=== PATIENT | female | born 1980 | race Caucasian/White ===

== ENCOUNTER 2019-01-16 15:39 | Observation (INO) ==
[2019-01-16] MEDS ORDERED: Ondansetron ODT 4 MG TAB.RAPDIS SL ONE (16:55)
--- NOTE | 2019-01-16 17:02 | Emergency Department Note ---
Disposition Clinical Impression: Appendicitis Qualifiers: Appendicitis type: acute appendicitis Acute appendicitis type: with localized peritonitis Appendicitis gangrene presence: unspecified whether gangrene present Appendicitis perforation presence: without perforation Appendicitis abscess presence: without abscess Qualified Code(s): K35.30 - Acute appendicitis with localized peritonitis, without perforation or gangrene Disposition: Admitted As Inpatient Condition: Fair General Adult HPI - General Chief complaint: ED Abdominal Pain Stated complaint: Nause/abd pain/No appetite Time Seen by Provider: 01/16/19 16:18 Source: patient Mode of arrival: private vehicle Limitations: no limitations Nursing Notes Reviewed: Yes Vital Signs Reviewed: Yes - History of Present Illness HPI Narrative: Patient is a 38-year-old female with a past medical history of anxiety, depression, possible thyroid problem who states that she has had generalized abdominal pain and nausea for the last 3 days. Patient has been eating and drinking less, states that she had a salad last night which caused a lot of abdominal pain. Patient was laying in bed today when her daughter decided that she needed to be seen in the ER. Patient is denying fevers or chills, headache, cough, runny nose, congestion, chest pain, shortness of breath, numbness, tingling, weakness. Patient states that she normally has problems with constipation, but she states that her bowels have been moving fairly regularly. Patient's last menstrual period was 01/04/19. Patient states that she took a home test because she was concerned she may be and states that it was negative. Pt also states that for the last two days she has not taken her lexapro or thyroid medication. Pain Scale: 5 - Related Data Home Medications Medication Instructions Recorded Confirmed Escitalopram [Lexapro] 10 mg PO DAILY 12/22/18 01/16/19 RX: hydrOXYzine HCl [Hydroxyzine 12.5 - 100 mg PO Q6HR PRN 12/22/18 01/16/19 HCl] Sucralfate [Carafate] 1 gm PO QIDAC 12/22/18 01/16/19 RX: Loratadine/Pseudophed (12 HR) 1 each PO BID PRN 01/16/19 01/16/19 [Claritin D (12HR)] Thyroid,Pork [Thyroid] 30 mg PO DAILY 01/16/19 01/16/19 Previous Rx's Medication Instructions Recorded RX: Vit/FA 1 each PO DAILY tablet 07/18/16 Lansoprazole [Prevacid] 30 mg PO DAILY #20 capsule. 09/29/18 Allergies Allergy/AdvReac Type Severity Reaction Status Date / Time latex Allergy Rash Verified 01/16/19 16:05 Penicillins Allergy Rash Verified 01/16/19 16:05 codeine AdvReac Mild Vomiting Verified 01/16/19 16:05 Constitutional: Denies: fever ENT ED: Denies: throat pain, congestion Cardiovascular: Denies: chest pain Respiratory: Denies: cough, dyspnea Gastrointestinal: Reports: abdominal pain, nausea. Denies: vomiting, diarrhea, constipation, hematochezia Genitourinary: Denies: urgency, dysuria Musculoskeletal: Denies: back pain, neck pain Neurological: Denies: headache, weakness, numbness, paresthesias Psychiatric: Reports: anxiety, depression Endocrine: Reports: fatigue. Denies: heat or cold intolerance Hematological/Lymphatic: Denies: easy bleeding, easy bruising Allergic/Immunologic: Denies: facial swelling, urticaria Past Medical History - Past Medical History Medical history: Reports: other Surgical history: Reports: other Psychiatric history: Reports: anxiety, panic disorder LINEMAN A CLASS history: Reports: no LINEMAN A CLASS history - Social History Smoking Status: Never smoker Smokeless Tobacco Status: No Alcohol use: Reports: rarely Drug use: Reports: none Physical Exam General: A&O x 3. No acute distress. Well developed, well nourished. Head: atraumatic, normocephalic. ENT: No conjunctival injection, no scleral icterus. PERRLA. EOMI. Oropharynx non- erythematous. mucous membranes dry. Neuro: No focal deficits, no speech deficit, no facial droop, mentating well. BUE/BLE Str 5/5. Pulm: Lungs CTAB A/P. No wheezes, rales, ronchi. Cardio: RRR no m/r/g. Chest not tender to palpation. Abd: Soft, non-distended. Normoactive bowel sounds in all four quadrants. Diffusely tender to palpation in all quadrants. No guarding. Non rigid. Extremities: Radial pulses 2+ ana. No LE edema. No cyanosis, clubbing. Skin: warm, dry, intact. No rashes. Psych: Appropriate mood and affect. Answers questions appropriately. Cooperative with exam. - General Limitations: no limitations General appearance: alert, in no apparent distress Course Course Narrative: Concern for appendicitis, gastritis, , pancreatitis. Will obtain CBC, BMP, lipase, UA, Urine , Ct Abd/Pelvis if U preg is negative. - Reevaluation(s) Reevaluation #1: CT Abd was concerning for appendicitis with inflammatory changes at base of appendix and periappendiceal inflammatory changes. Spoke with Dr. Drummond who agreed to evaluate the patient at bedside. Ordered antibiotics, made her NPO, and informed the patient of the plan. She then expressed that this was making her anxious, attempting reassurance and then ordered ativan, 1 mg IV. Time: 19:13 Vital Signs Temperature 97.8 F 01/16/19 16:02 Pulse Rate 106 01/16/19 16:02 Respiratory Rate 14 01/16/19 16:02 Blood Pressure 113/79 01/16/19 16:02 O2 Sat by Pulse Oximetry 98 01/16/19 16:02 Temperature 97.8 F 01/16/19 16:02 Pulse Rate 101 01/16/19 21:08 Respiratory Rate 16 01/16/19 21:08 Blood Pressure 106/74 01/16/19 21:08 O2 Sat by Pulse Oximetry 100 01/16/19 21:08 Oxygen Delivery Oxygen Delivery Room Air Medical Decision Making - MDM Narrative Medical decision making narrative: Pts CT was concerning for appendicitis. Dr. Drummond, surgeon paper cone machine operator, was consulted on the case and he evaluated the patient at bedside. Pt was started on cefoxitin, made NPO, and given ativan for anxiety. Dr Drummond decided to take patient to the OR and she was kept in the ED until being taken to the OR. Pt remained stable while in the department. Pt was given anti-emetics with only modest relief. Pt was given an opportunity to ask questions and all of her concerns were addressed. Pt verbalized understanding and agreement with the plan. - Medical Records Medical records reviewed: Yes I reviewed the patient's medical records. - Lab Data Lab results reviewed: Yes I reviewed the patient's lab results. Result diagrams: 01/16/19 16:32 01/16/19 16:32 Lab Results 01/16/19 01/16/19 01/16/19 Range/Units 16:32 16:32 18:34 WBC 5.6 (4.3-11.1) K/mcL RBC 4.74 (3.82-4.97) M/mcL Hgb 13.2 (11.5-15.4) g/dL Hct 41.6 (35.3-44.9) % MCV 87.8 (83.0-100.0) fL MCH 27.8 L (28.0-33.3) pg MCHC 31.7 (31.6-35.5) g/dL RDW 13.9 (11.5-14.5) % Plt Count 207 (140-400) K/mcL MPV 10.8 (9.4-12.4) fL Immature Gran % 0.4 (0-4) % Seg Neutrophils % 74.5 % Lymphocytes % 13.8 % Monocytes % 8.7 % Eosinophils % 2.1 % Basophils % 0.5 % Neutrophils # 4.2 (1.6-8.9) K/mcL Lymphocytes # 0.8 (0.6-4.6) K/mcL Monocytes # 0.5 (0.0-1.3) K/mcL Eosinophils # 0.1 (0.0-0.6) K/mcL Basophils # 0.0 (0.0-0.2) K/mcL Sodium 135 L (136-145) mEq/L Potassium 3.9 (3.5-5.1) mEq/L Chloride 106 (98-107) mEq/L Carbon Dioxide 22 L (23-29) mEq/L BUN 11 (6-20) mg/dL Creatinine 0.47 L (0.60-1.20) mg/dL Est GFR ( Amer) > 60 (> 60) Est GFR (Non-Af Amer) > 60 (> 60) BUN/Creatinine Ratio 23 (6-26) Glucose 96 (70-105) mg/dL Calculated Osmolality 279 L (280-300) Calcium 8.0 L (8.6-10.3) mg/dL Total Bilirubin 0.4 (0.3-1.0) mg/dL Direct Bilirubin 0.1 (0.0-0.2) mg/dL Indirect Bilirubin 0.3 (0.0-1.2) mg/dL AST 21 (13-39) Units/L ALT 13 (7-52) Units/L Alkaline Phosphatase 72 (34-104) Units/L Serum Total Protein 6.7 (6.4-8.9) g/dL Albumin 4.2 (3.5-5.7) g/dL Globulin 2.5 (2.4-3.5) g/dL Albumin/Globulin Ratio 1.7 (1.1-2.2) Lipase 14 (11-82) Units/L TSH 1.145 (0.340-5.600) mcIU/mL Urine Color Yellow (Yellow) Urine Clarity Clear (Clear) Urine pH 6.0 (5.0-8.0) pH Units Ur Specific [place] 1.017 (1.010-1.025) Urine Protein Trace (Neg-Trace) mg/dL Urine Glucose (UA) Normal (Normal) mg/dL Urine Ketones 80 H (Negative) mg/dL Urine Blood Negative (Negative) Urine Nitrite Negative (Negative) Urine Bilirubin Negative (Negative) Urine Urobilinogen Normal (Normal) mg/dL Ur Leukocyte Esterase Small H (Negative) Urine Microscopic RBC 5-15 H (0-3) per hpf Urine Microscopic WBC 5-15 H (0-3) per hpf Ur Squamous Epith Cells Many H (None-Few) per lpf Urine Bacteria Few (None-Few) per hpf Hyaline Casts None Seen (None-Few) per lpf Ur Culture Indicated? NO. A (NO) Urine Test (Negative) 01/16/19 Range/Units 18:34 WBC (4.3-11.1) K/mcL RBC (3.82-4.97) M/mcL Hgb (11.5-15.4) g/dL Hct (35.3-44.9) % MCV (83.0-100.0) fL MCH (28.0-33.3) pg MCHC (31.6-35.5) g/dL RDW (11.5-14.5) % Plt Count (140-400) K/mcL MPV (9.4-12.4) fL Immature Gran % (0-4) % Seg Neutrophils % % Lymphocytes % % Monocytes % % Eosinophils % % Basophils % % Neutrophils # (1.6-8.9) K/mcL Lymphocytes # (0.6-4.6) K/mcL Monocytes # (0.0-1.3) K/mcL Eosinophils # (0.0-0.6) K/mcL Basophils # (0.0-0.2) K/mcL Sodium (136-145) mEq/L Potassium (3.5-5.1) mEq/L Chloride (98-107) mEq/L Carbon Dioxide (23-29) mEq/L BUN (6-20) mg/dL Creatinine (0.60-1.20) mg/dL Est GFR ( Amer) (> 60) Est GFR (Non-Af Amer) (> 60) BUN/Creatinine Ratio (6-26) Glucose (70-105) mg/dL Calculated Osmolality (280-300) Calcium (8.6-10.3) mg/dL Total Bilirubin (0.3-1.0) mg/dL Direct Bilirubin (0.0-0.2) mg/dL Indirect Bilirubin (0.0-1.2) mg/dL AST (13-39) Units/L ALT (7-52) Units/L Alkaline Phosphatase (34-104) Units/L Serum Total Protein (6.4-8.9) g/dL Albumin (3.5-5.7) g/dL Globulin (2.4-3.5) g/dL Albumin/Globulin Ratio (1.1-2.2) Lipase (11-82) Units/L TSH (0.340-5.600) mcIU/mL Urine Color (Yellow) Urine Clarity (Clear) Urine pH (5.0-8.0) pH Units Ur Specific [place] (1.010-1.025) Urine Protein (Neg-Trace) mg/dL Urine Glucose (UA) (Normal) mg/dL Urine Ketones (Negative) mg/dL Urine Blood (Negative) Urine Nitrite (Negative) Urine Bilirubin (Negative) Urine Urobilinogen (Normal) mg/dL Ur Leukocyte Esterase (Negative) Urine Microscopic RBC (0-3) per hpf Urine Microscopic WBC (0-3) per hpf Ur Squamous Epith Cells (None-Few) per lpf Urine Bacteria (None-Few) per hpf Hyaline Casts (None-Few) per lpf Ur Culture Indicated? (NO) Urine Test Negative (Negative) - Radiology Data Radiology results reviewed: Yes I reviewed the patient's radiology results. Abdomen/Pelvis CT 01/16/19 17:03 IMPRESSION: 1. A large portion the appendix appears normal, however there is a portion of the appendix either at the base or tip which appears inflammatory with periappendiceal fluid suspicious for focal acute appendicitis. No perforation is evident. 2. Mild intra and extrahepatic bile duct dilatation status post cholecystectomy typical of reservoir effect. D/ / Hernán Lynen / Hernán Lynne Interpreting Provider: Hernán Lynne Attestation Statement - Attestation Attestation: Resident Attestation: I examined this patient and my medical decision making was reviewed with the Resident Physician. I agree with the documented findings, disposition and treatment plan as described except to the extent set forth below. We independently had [id number] contact with the patient. Patient presenting to the emergency department for evaluation of abdominal pain. Patient abdominal pain does appear to be epigastric and left-sided in nature. Patient does have significant tenderness palpation with associated guarding. Patient will undergo further evaluation with blood work and CT scan. CT scan concerning for appendicitis. Call was placed to surgery. Patient will be taken for surgery and admitted to the surgical service.
[2019-01-16] MEDS ORDERED: Famotidine 20 MG/2 ML VIAL IVP STA (17:03)
[2019-01-16] MEDS ORDERED: Isovue-370 500 ML BOTTLE IVP ONE (17:03)
[2019-01-16] MEDS ORDERED: 0.9 % Sodium Chloride 1,000 ML IVC ONE (17:03)
[2019-01-16 17:17] LABS: Basophils % 0.5 %; Eosinophils # 0.1 K/mcL (0.0-0.6); Eosinophils % 2.1 %; Hematocrit 41.6 % (35.3-44.9); Hemoglobin 13.2 g/dL (11.5-15.4); Immature Granulocytes % 0.4 % (0-4); Lymphocytes # 0.8 K/mcL (0.6-4.6); Lymphocytes % 13.8 %; Mean Corpuscular HGB Conc 31.7 g/dL (31.6-35.5); Mean Corpuscular Hemoglobin 27.8 pg (28.0-33.3); Mean Corpuscular Volume 87.8 fL (83.0-100.0); Mean Platelet Volume 10.8 fL (9.4-12.4); Monocytes # 0.5 K/mcL (0.0-1.3); Monocytes % 8.7 %; Neutrophils # 4.2 K/mcL (1.6-8.9); Platelet Count 207 K/mcL (140-400); Red Blood Count 4.74 M/mcL (3.82-4.97); Red Cell Distribution Width 13.9 % (11.5-14.5); Segmented Neutrophils % 74.5 %
[2019-01-16 17:40] LABS: Alanine Aminotransferase 13 Units/L (7-52); Albumin 4.2 g/dL (3.5-5.7); Albumin/Globulin Ratio 1.7 (1.1-2.2); Alkaline Phosphatase 72 Units/L (34-104); Aspartate Amino Transferase 21 Units/L (13-39); BUN/Creatinine Ratio 23 (6-26); Bilirubin,Direct 0.1 mg/dL (0.0-0.2); Bilirubin,Indirect 0.3 mg/dL (0.0-1.2); Bilirubin,Total 0.4 mg/dL (0.3-1.0); Blood Urea Nitrogen 11 mg/dL (6-20); Carbon Dioxide 22 mEq/L (23-29); Chloride 106 mEq/L (98-107); Globulin 2.5 g/dL (2.4-3.5); Glucose 96 mg/dL (70-105); Lipase 14 Units/L (11-82); Osmolality,Calculated 279 (280-300); Potassium 3.9 mEq/L (3.5-5.1); Sodium 135 mEq/L (136-145); Total Protein 6.7 g/dL (6.4-8.9); eGFR For Non-African Americans > 60 (> 60)
[2019-01-16 17:51] LABS: Thyroid Stimulating Hormone 1.145 mcIU/mL (0.340-5.600)
[2019-01-16] MEDS ORDERED: cefOXitin 2,000 MG in 0.9 % Sodium Chloride Mini Bag 100 ML IVPB ONE (19:06)
[2019-01-16] MEDS ORDERED: *HR* LORazepam 2 MG/ML VIAL IVP ONE (19:12)
[2019-01-16 19:22] LABS: Bilirubin,Urine Negative (Negative); Blood,Urine Negative (Negative); Clarity,Urine Clear (Clear); Color,Urine Yellow (Yellow); Glucose,Urine (UA) Normal (Normal); Ketones,Urine 80 mg/dL (Negative); Leukocyte Esterase,Urine Small (Negative); Nitrite,Urine Negative (Negative); Protein,Urine Trace mg/dL (Neg-Trace); Specific Gravity,Urine 1.017 (1.010-1.025); Urobilinogen,Urine Normal (Normal)
[2019-01-16 19:25] LABS: Bacteria,Urine Few per hpf (None-Few); Hyaline Casts,Urine None Seen per lpf (None-Few); Squamous Epithelial Cell,Urine Many per lpf (None-Few)
--- NOTE | 2019-01-16 20:02 | General Surg History&Physical ---
Date of Encounter: 01/16/19 Time of Encounter: 19:45 Assessment and Plan (1) Appendicitis Current Visit: Yes Status: Acute The assessment and plan as outlined above was discussed with the patient and/or family members who expressed understanding and agreement. All questions were answered. Acute retrocecal appendicitis associated with nonspecific abdominal symptoms. abnormal CAT scan findings. No evidence of leukocytosis. I discussed the risks and benefits of surgery with the patient and she wishes to proceed. Qualifiers: Appendicitis type: acute appendicitis Acute appendicitis type: with l ocalized peritonitis Appendicitis gangrene presence: unspecified whether gangrene present Appendicitis perforation presence: without perforation Appendicitis abscess presence: without abscess Qualified Code(s): K35.30 - Acute appendicitis with localized peritonitis, without perforation or gangrene History of Present Illness Chief complaint: Abdominal pain and nausea HPI: Ms. Beckford is a 38 year old female Who is had 3 day history of generalized malaise and central abdominal pain associated with nausea and vomiting. She is felt very poorly over the last 3 days just prior to examination she had a single episode of diarrhea. She has pain in the central portion the abdomen radiating to both lower quadrants. She has prominent anorexia I personally reviewed the CAT scan of the abdomen. Radiology is diagnosed acute appendicitis and I agree with the findings. She appears to have periappendiceal inflammation in this appears to be retrocecal in orientation. I have recommended laparoscopic appendectomy. She understands this and wishes to proceed. Past Med Surg Social Fam HX - Past Medical History Medical history: other Additional medical history: stomach ulcers Psychiatric history: anxiety, panic disorder - Past Surgical History Surgical History: cholecystectomy, other Additional surgical history: ovarian cyst sx - Social History Smoking Status: Never smoker Smokeless Tobacco Status: No Alcohol use: rarely Drug use: none - Family History Father Hx Family Cardiac Disorders: Yes (HTN) Medications and Allergies Vit/FA 1 each PO DAILY tablet 07/18/16 [Rx] Lansoprazole [Prevacid] 30 mg PO DAILY #20 capsule. 09/29/18 [Rx] Escitalopram [Lexapro] 10 mg PO DAILY 12/22/18 [History] Sucralfate [Carafate] 1 gm PO QIDAC 12/22/18 [History] hydrOXYzine HCl [Hydroxyzine HCl] 12.5 - 100 mg PO Q6HR PRN 12/22/18 [History] Loratadine/Pseudophed (12 HR) [Claritin D (12HR)] 1 each PO BID PRN 01/16/19 [History] Thyroid,Pork [Thyroid] 30 mg PO DAILY 01/16/19 [History] Allergy/AdvReac Type Severity Reaction Status Date / Time latex Allergy Rash Verified 01/16/19 16:05 Penicillins Allergy Rash Verified 01/16/19 16:05 codeine AdvReac Mild Vomiting Verified 01/16/19 16:05 Review of Systems All systems PM: reviewed and no additional remarkable complaints except as stated All systems PM: The remainder of the systems were reviewed and are negative - Gastrointestinal diarrhea, nausea, vomiting General Surgery Exam Initial Vital Signs Temp Pulse Resp BP Pulse Ox 97.8 F 106 14 113/79 98 01/16/19 16:02 01/16/19 16:02 01/16/19 16:02 01/16/19 16:02 01/16/19 16:02 - General physical appearance well developed, well nourished, moderate distress, moderate pain - Neck no masses, no bruits, trachea midline, no lymphadectomy, no venous distension - Respiratory normal expansion, normal respiratory effort, clear to percussion, clear to auscultation - Cardiovascular Cardiovascular exam: Present: RRR, no murmurs/rubs/gallops - Abdomen Abdomen general surgery: Present: tender (No guarding or rebound on the abdominal examination) Abdominal Tenderness: Present: RLQ, LLQ - Integumentary Integumentary general surgery: Present: warm and dry, no abnormal pigmentation - Neurologic Present: CN 2-12 grossly intact, normal coordination, normal sensation - Psychiatric Psychiatric general surgery: Present: appropriate, oriented to person, oriented to place, oriented to time, speech is normal, memory intact Results - Labs 01/16/19 16:32 01/16/19 16:32 Abnormal lab results MCH 27.8 pg (28.0-33.3) L 01/16/19 16:32 Sodium 135 mEq/L (136-145) L 01/16/19 16:32 Carbon Dioxide 22 mEq/L (23-29) L 01/16/19 16:32 Creatinine 0.47 mg/dL (0.60-1.20) L 01/16/19 16:32 Calculated Osmolality 279 (280-300) L 01/16/19 16:32 Calcium 8.0 mg/dL (8.6-10.3) L 01/16/19 16:32 Urine Ketones 80 mg/dL (Negative) H 01/16/19 18:34 Ur Leukocyte Esterase Small (Negative) H 01/16/19 18:34 Urine Microscopic RBC 5-15 per hpf (0-3) H 01/16/19 18:34 Urine Microscopic WBC 5-15 per hpf (0-3) H 01/16/19 18:34 Ur Squamous Epith Cells Many per lpf (None-Few) H 01/16/19 18:34 Ur Culture Indicated? NO. (NO) A 01/16/19 18:34 Diabetes panel 01/16/19 Range/Units 16:32 Sodium 135 L (136-145) mEq/L Potassium 3.9 (3.5-5.1) mEq/L Chloride 106 (98-107) mEq/L Carbon Dioxide 22 L (23-29) mEq/L BUN 11 (6-20) mg/dL Creatinine 0.47 L (0.60-1.20) mg/dL Glucose 96 (70-105) mg/dL Calcium 8.0 L (8.6-10.3) mg/dL AST 21 (13-39) Units/L ALT 13 (7-52) Units/L Alkaline Phosphatase 72 (34-104) Units/L Albumin 4.2 (3.5-5.7) g/dL Thyroid panel 01/16/19 Range/Units 16:32 TSH 1.145 (0.340-5.600) mcIU/mL Calcium panel 01/16/19 Range/Units 16:32 Calcium 8.0 L (8.6-10.3) mg/dL Albumin 4.2 (3.5-5.7) g/dL Pituitary panel 01/16/19 Range/Units 16:32 Sodium 135 L (136-145) mEq/L Potassium 3.9 (3.5-5.1) mEq/L Chloride 106 (98-107) mEq/L Carbon Dioxide 22 L (23-29) mEq/L BUN 11 (6-20) mg/dL Creatinine 0.47 L (0.60-1.20) mg/dL Glucose 96 (70-105) mg/dL Calcium 8.0 L (8.6-10.3) mg/dL TSH 1.145 (0.340-5.600) mcIU/mL Adrenal panel 01/16/19 Range/Units 16:32 Sodium 135 L (136-145) mEq/L Potassium 3.9 (3.5-5.1) mEq/L Chloride 106 (98-107) mEq/L Carbon Dioxide 22 L (23-29) mEq/L BUN 11 (6-20) mg/dL Creatinine 0.47 L (0.60-1.20) mg/dL Glucose 96 (70-105) mg/dL Calcium 8.0 L (8.6-10.3) mg/dL Total Bilirubin 0.4 (0.3-1.0) mg/dL AST 21 (13-39) Units/L ALT 13 (7-52) Units/L Alkaline Phosphatase 72 (34-104) Units/L Albumin 4.2 (3.5-5.7) g/dL All other labs normal. - Imaging CT scan - abdomen: image reviewed (I personally reviewed the CAT scan of the abdomen. Findings are consistent with retrocecal appendicitis)
[2019-01-16] MEDS ORDERED: *HR* OxyCODONE Immed Rel 5 MG TABLET PO PRN (21:18)
[2019-01-16] MEDS ORDERED: *HR* HYDROmorphone (PF) 1 MG/ML SYRINGE IVP PRN (21:18)
[2019-01-16] MEDS ORDERED: Ondansetron 4 MG/2 ML VIAL IVP ONE (21:18)
--- NOTE | 2019-01-16 21:18 | Anesthesia Evaluation PreOp ---
Date of Encounter: 01/16/19 Time of Encounter: 21:57 - Past History Planned Operation: Laparoscopic Appendectomy Cardiac History: Denies any Significant Hx Pulmonary History: Former smoker (quit 7 years ago, smoked for 15 years) BANQUET DIRECTOR History: Denies Any Significant HX Other Medical History: Thyroid, GERD, Other (panic/anxiety) Anesthesia History: No Prior Anesthetic Complications, Past Anesthesia Test: Negative (01/16/2019) Alcohol Use: rarely Drug use: none Medications and Allergies Vit/FA 1 each PO DAILY tablet 07/18/16 [Rx] Lansoprazole [Prevacid] 30 mg PO DAILY #20 capsule. 09/29/18 [Rx] Escitalopram [Lexapro] 10 mg PO DAILY 12/22/18 [History] Sucralfate [Carafate] 1 gm PO QIDAC 12/22/18 [History] hydrOXYzine HCl [Hydroxyzine HCl] 12.5 - 100 mg PO Q6HR PRN 12/22/18 [History] Loratadine/Pseudophed (12 HR) [Claritin D (12HR)] 1 each PO BID PRN 01/16/19 [History] Thyroid,Pork [Thyroid] 30 mg PO DAILY 01/16/19 [History] Allergy/AdvReac Type Severity Reaction Status Date / Time latex Allergy Rash Verified 01/16/19 16:05 Penicillins Allergy Rash Verified 01/16/19 16:05 codeine AdvReac Mild Vomiting Verified 01/16/19 16:05 - Meds/Allergy Pre-op Review Medications Reviewed: Yes Allergies Reviewed: Yes Beta Blockers on Current Med List: No Anesthesia Results - Labs 01/16/19 16:32 01/16/19 16:32 Anesthesia Exam Vital Signs/O2 Sat, Most Current Temp Pulse Resp BP Pulse Ox 97.8 F 101 16 106/74 100 01/16/19 16:02 01/16/19 21:08 01/16/19 21:08 01/16/19 21:08 01/16/19 21:08 Height: 5'2''/1.57m Weight: 121 lbs/55 kg NPO (# of Hours): 8 Pain Scale: 3 (abdomen) Pain Scale Used: Numeric (1 - 10) - HEENT Pupil (Motor): EOMI Mallampati: II Teeth: Normal Oral Opening: Greater than 3 - BANQUET DIRECTOR LOC: Oriented BANQUET DIRECTOR Motor: Normal RUE, Normal LUE, Normal RLE, Normal LLE, Normal Face BANQUET DIRECTOR Sensory: Normal: RUE, LUE, RLE, LLE, Face - Cardiac Rhythm: Regular Murmur: None - Pulmonary Breath Sounds: bilateral Clear Respiratory Effort: Symmetrical Anesthesia Assess/Plan ASA Score: 2 Level of consciousness: Cooperative, Oriented, Tranquil Anesthetic Plan: General Monitoring Plan: Standard Monitors Recovery Plan: PACU
[2019-01-16] MEDS ORDERED: Acetaminophen IV 1,000 MG/100 ML INFUS..BTL ONE (21:44)
[2019-01-16] MEDS ORDERED: *HR* Cisatracurium 10 MG/5 ML VIAL IV ONE (21:45)
[2019-01-16] MEDS ORDERED: *HR* Midazolam HCl 2 MG/2 ML VIAL ONE (21:46)
[2019-01-16] MEDS ORDERED: *HR* Propofol 200 MG/20 ML VIAL IVP ONE (21:46)
[2019-01-16] MEDS ORDERED: Ondansetron 4 MG/2 ML VIAL ONE (21:46)
[2019-01-16] MEDS ORDERED: Lidocaine -MPF 2% 2 ML VIAL ONE ×2 (21:46→22:53)
[2019-01-16] MEDS ORDERED: *HR* FentaNYL (PF) 100 MCG/2 ML VIAL ONE (21:46)
[2019-01-16] MEDS ORDERED: Dexamethasone 4 MG/ML VIAL ONE (21:46)
[2019-01-16] MEDS ORDERED: *HR* Succinylcholine 200 MG/10 ML VIAL IVP ONE (21:46)
[2019-01-16] MEDS ORDERED: CefOXitin 2,000 MG VIAL ONE (21:48)
[2019-01-16] MEDS ORDERED: CefOXitin 1,000 MG VIAL ONE (21:50)
[2019-01-16] MEDS ORDERED: EPHEDrine 50 MG/ML VIAL ONE (22:31)
--- NOTE | 2019-01-16 23:11 | Operative Note ---
Date of procedure: 01/16/19 Pre-op diagnosis: Acute appendicitis Post-op diagnosis: other (Ruptured right hemorrhagic ovarian cyst) Procedure: #1 laparoscopic appendectomy #2 diagnostic pelvic laparoscopy Anesthesia: VERONICA Surgeon: Petar Drummond Was there an cement tester assistant present: No Estimated blood loss (cc): 25 Specimen: Appendix Condition: stable Disposition: PACU Procedure in Detail: After informed consent the patients taking major operative suite placed in supine position given adequate general endotracheal anesthesia. The abdomen was prepped and draped in sterile fashion utilizing ChloraPrep standard draping techniques. Timeout was taken and the patient was identified. Made a vertical midline incision below the umbilicus and dissected down to level of fascia. 2 traction stitches were placed. A Bey trocar was placed in the abdomen and the abdomen was insufflated to 15 mmHg pressure CO2. The patient developed some bradycardia and hypotension. The gas pressure was immediately dropped and the abdomen and the patient quickly recovered. We re-insufflated to 10 mmHg pressure no further drops were noted. I placed a 5 mm trocar in the suprapubic area and a 12 trocar in the right upper quadrant. The appendix was identified. This was retrocecal. It was completely normal and noninflamed. I divided the appendix off the base the cecum with a gastrointestinal load and I divided the mesial appendix with a vascular load on the laparoscopic stapler. The appendix was removed. When I initially placed the laparoscope in the abdomen was noted that there was some brownish red fluid in the pelvis. Since the appendix was normal and then turned my attention to the ovaries. I examined the right ovary and found to cysts on the right ovary one of which looked as though it had recently ruptured. I examined the left ovary and found no evidence of cysts. I will I was elevating the left ovary I damaged the posterior aspect of the left broad ligament. There was some mild bleeding from this area. I controlled the bleeding with 10 mm surgical clips and 2 mL of charlie I made a careful observation of the left broad ligament. There was no damage to the left tube or ovary. There is no further bleeding from the peritoneal surface of the left broad ligament. No ovarian cyst or abnormality was noted on the left ovary. I irrigated the pelvis and the operative field with copious amounts of antibiotic containing solution. All staple lines were intact. There was no further bleeding. Total blood loss was about 25 mL. All trochars were removed. Fascia was closed with 0 Vicryl. The skin was reapproximated with 2-0 Vicryl and 4-0 Vicryl. She tolerated the procedure well.
--- NOTE | 2019-01-16 23:35 | Anesthesia Evaluation Post Op ---
Date of Encounter: 01/16/19 Time of Encounter: 23:34 - Vital Signs Vital Signs: Vital Signs/O2 Sat, Most Current Temp Pulse Resp BP Pulse Ox 98.1 F 85 14 101/65 100 01/16/19 23:10 01/16/19 23:30 01/16/19 23:30 01/16/19 23:30 01/16/19 23:30 - Lungs Lungs: Clear Ascult./Percussion - Airway Airway: Non-obstructed - Cardiovascular Regular Rate - Mental Status Mental Status: Asleep with brisk response to light stimulation - Pain Pain Scale: 6 Pain Scale used: Numeric (1 - 10) - Nausea Vomiting Nausea Vomiting: Not Present - Hydration Hydration: Ice chips, Has not voided - Discharge PostOp Status: Transfer Patient to floor
[2019-01-16] MEDS ORDERED: *HR* OxyCODONE/APAP 5/325 TABLET PO PRN (23:54)
[2019-01-16] MEDS ORDERED: Ondansetron 4 MG/2 ML VIAL IVP PRN (23:54)
[2019-01-16] MEDS ORDERED: 0.9 % Sodium Chloride 1,000 ML IVC SCH (23:54)
[2019-01-17] MEDS: OXYCODONE Oral CONC 10 MG/0.5 ML ORAL.SYG SL PRN ×2 (00:06→04:02)
[2019-01-17 04:40] LABS: Basophils % 0.3 %; Hematocrit 36.2 % (35.3-44.9); Hemoglobin 11.3 g/dL (11.5-15.4); Immature Granulocytes % 0.3 % (0-4); Lymphocytes # 0.3 K/mcL (0.6-4.6); Lymphocytes % 4.2 %; Mean Corpuscular HGB Conc 31.2 g/dL (31.6-35.5); Mean Corpuscular Hemoglobin 27.6 pg (28.0-33.3); Mean Corpuscular Volume 88.3 fL (83.0-100.0); Mean Platelet Volume 10.8 fL (9.4-12.4); Monocytes # 0.2 K/mcL (0.0-1.3); Neutrophils # 5.9 K/mcL (1.6-8.9); Platelet Count 164 K/mcL (140-400); Red Cell Distribution Width 13.9 % (11.5-14.5); Segmented Neutrophils % 92.2 %
[2019-01-17 04:59] LABS: BUN/Creatinine Ratio 24 (6-26); Blood Urea Nitrogen 11 mg/dL (6-20); Calcium 7.3 mg/dL (8.6-10.3); Carbon Dioxide 19 mEq/L (23-29); Chloride 108 mEq/L (98-107); Glucose 104 mg/dL (70-105); Osmolality,Calculated 280 (280-300); Sodium 135 mEq/L (136-145); eGFR For Non-African Americans > 60 (> 60)
--- NOTE | 2019-01-17 08:30 | Discharge Summary ---
<Denise Duron L - Last Filed: 01/17/19 10:30> Orders not resulted at time of discharge: Pending orders 01/16/19 22:55 Surgical Pathology [PTH] Routine Date of Encounter: 01/17/19 Time of Encounter: 07:45 - Discharge Diagnosis (1) Ruptured cyst of ovary Priority: Secondary Status: Acute (2) Appendicitis Priority: Primary Status: Resolved Qualifiers: Appendicitis type: acute appendicitis Acute appendicitis type: with localized peritonitis Appendicitis gangrene presence: unspecified whether gangrene present Appendicitis perforation presence: without perforation Appendicitis abscess presence: without abscess Qualified Code(s): K35.30 - Acute appendicitis with localized peritonitis, without perforation or gangrene General Surgery Exam Initial Vital Signs Temp Pulse Resp BP Pulse Ox 97.8 F 106 14 113/79 98 01/16/19 16:02 01/16/19 16:02 01/16/19 16:02 01/16/19 16:02 01/16/19 16:02 Vital Signs Temp Pulse Resp BP Pulse Ox 01/17/19 07:52 98.1 F 95 15 101/65 98 01/17/19 04:28 97.7 F 82 19 121/82 100 01/17/19 00:35 97.9 F 82 16 107/72 99 01/17/19 00:07 97.5 F L 86 16 107/68 99 01/16/19 23:37 98.1 F 79 16 107/71 100 01/16/19 23:30 85 14 101/65 100 01/16/19 23:20 88 14 113/67 100 01/16/19 23:10 98.1 F 104 12 111/60 100 01/16/19 21:08 101 16 106/74 100 01/16/19 20:03 85 16 117/79 100 01/16/19 18:46 84 16 103/72 100 01/16/19 16:02 97.8 F 106 14 113/79 98 Intake and Output 01/16/19 01/17/19 01/17/19 23:59 07:59 15:59 Intake Total 200 / 200 1340 / 1340 Output Total 20 / 20 200 / 200 Balance -20 / -20 0 / 0 1340 / 1340 Intake: IV Fluids 100 / 100 1100 / 1100 Ancef 2,000 MG In 0.9 % Sodium 100 / 100 Chloride 100 ML @ 200 mls/hr IVPB Q8HR [facility] Rx#:[id number] Oral 100 / 100 240 / 240 Output: Urine 200 / 200 Estimated Blood Loss 20 / 20 Other: Meal Breakfast # Voids 1 Weight 55.157 kg VITAL SIGNS: Reviewed. See [facility] GENERAL: In no apparent distress. HEENT: Normocephalic, atraumatic, pupils are equal and reactive, extraocular motions intact, oropharynx is pink and moist, there is no neck adenopathy or JVD noted. CHEST/RESPIRATORY: The thorax is free from signs of trauma. Lung sounds: clear to auscultation, normal respiratory effort CARDIAC: Regular rate and rhythm. Normal S1 and S2, without murmurs, gallops, or rubs. VASCULAR: No Edema. 2+ peripheral pulses. ABDOMEN: soft, expected postoperative tenderness, active bowel sounds INCISION: Surgical incision is clean, dry, and intact. There are no signs of cellulitis or infection noted. MUSCULOSKELETAL: Good range of motion of all major joints. Extremities without clubbing, cyanosis or edema. NEUROLOGIC EXAM: Alert and oriented x 3. Speech normal. Follows commands. PSYCHIATRIC: Mood normal. SKIN: No rash or lesions. - Hospital Course Hospital course: Ms. Beckford is a 38 year old female who presented on 01/16/2019 and was found to have imaging and exam consistent with appendicitis. She was taken to the operating room on the same day where she underwent a laparoscopic appendectomy and a diagnostic pelvic laparoscopy, which noted a ruptured right hemorrhagic ovarian cyst, by Dr. Drummond. Her hospital course has been uncomplicated. She is ambulating and voiding without difficulty, tolerating a diet without nausea or vomiting, vital signs stable, and she is afebrile. We will begin discharge planning to home with follow-up in the office in approximately 2 weeks. She is directed to follow-up with her QUICK TECHNICIAN within 2 weeks as well. - Time Spent with Patient Total time spent providing and/or coordinating discharge services: - Discharge Medications Prescriptions: New Ondansetron ODT [Zofran ODT] 4 mg SL Q4HR PRN #15 tab.rapdis PRN Reason: Postsurgical nausea Docusate Sodium [Colace] 100 mg PO BID PRN #30 capsule PRN Reason: Contstipation HYDROcodone/Acet 5/325 mg [[place]aca 5-325 mg] 1 tab PO Q6H PRN 5 Days #20 tab PRN Reason: Pain RX: Ibuprofen 800 mg PO Q8H PRN #30 tablet PRN Reason: Postsurgical pain Continue RX: Vit/FA 1 each PO DAILY tablet RX: Sucralfate [Carafate] 1 gm PO QIDAC RX: Escitalopram [Lexapro] 10 mg PO DAILY RX: hydrOXYzine HCl [Hydroxyzine HCl] 12.5 - 100 mg PO Q6HR PRN PRN Reason: Anxiety RX: Loratadine/Pseudophed (12 HR) [Claritin D (12HR)] 1 each PO BID PRN PRN Reason: allergies RX: Thyroid,Pork [Thyroid] 30 mg PO DAILY RX: Lansoprazole [Prevacid] 30 mg PO DAILY #20 capsule. Home Medications: RX: Vit/FA 1 each PO DAILY tablet 07/18/16 [Rx] RX: Lansoprazole [Prevacid] 30 mg PO DAILY #20 capsule. 09/29/18 [Rx] RX: Escitalopram [Lexapro] 10 mg PO DAILY 12/22/18 [History] RX: Sucralfate [Carafate] 1 gm PO QIDAC 12/22/18 [History] RX: hydrOXYzine HCl [Hydroxyzine HCl] 12.5 - 100 mg PO Q6HR PRN 12/22/18 [History] RX: Loratadine/Pseudophed (12 HR) [Claritin D (12HR)] 1 each PO BID PRN 01/16/19 [History] RX: Thyroid,Pork [Thyroid] 30 mg PO DAILY 01/16/19 [History] Docusate Sodium [Colace] 100 mg PO BID PRN #30 capsule 01/17/19 [Rx] HYDROcodone/Acet 5/325 mg [Petaca 5-325 mg] 1 tab PO Q6H PRN 5 Days #20 tab 01/17/19 [Rx] Ondansetron ODT [Zofran ODT] 4 mg SL Q4HR PRN #15 tab.rapdis 01/17/19 [Rx] RX: Ibuprofen 800 mg PO Q8H PRN #30 tablet 01/17/19 [Rx] Allergies/Adverse Reactions: Allergy/AdvReac Type Severity Reaction Status Date / Time latex Allergy Rash Verified 01/16/19 16:05 Penicillins Allergy Rash Verified 01/16/19 16:05 codeine AdvReac Mild Vomiting Verified 01/16/19 16:05 Date of admission: 01/16/19 20:44 Primary care physician: Anupam Reis MD Consults: 01/16/19 19:12 Consult to Surgery [CONS] Stat Consulting Provider: Petar Drummond Reason for Consult: appendicitis Time Notified: 19:12 Call Completed: Yes Discharging clinician: Petar Drummond (Juana Duron, [employer]ER SALES REPRESENTATIVE) Anticipated date of discharge: 01/17/19 Labs on day of discharge: Labs from last 24 hours 01/17/19 01/17/19 01/16/19 03:57 03:57 18:34 WBC 6.4 RBC 4.10 Hgb 11.3 L D Hct 36.2 MCV 88.3 MCH 27.6 L MCHC 31.2 L RDW 13.9 Plt Count 164 MPV 10.8 Immature Gran % 0.3 Seg Neutrophils % 92.2 Lymphocytes % 4.2 Monocytes % 3.0 Eosinophils % 0.0 Basophils % 0.3 Neutrophils # 5.9 Lymphocytes # 0.3 L Monocytes # 0.2 Eosinophils # 0.0 Basophils # 0.0 Sodium 135 L Potassium 4.0 Chloride 108 H Carbon Dioxide 19 L BUN 11 Creatinine 0.46 L Est GFR ( Amer) > 60 Est GFR (Non-Af Amer) > 60 BUN/Creatinine Ratio 24 Glucose 104 Calculated Osmolality 280 Calcium 7.3 L Total Bilirubin Direct Bilirubin Indirect Bilirubin AST ALT Alkaline Phosphatase Serum Total Protein Albumin Globulin Albumin/Globulin Ratio Lipase TSH Urine Color Urine Clarity Urine pH Ur Specific [place] Urine Protein Urine Glucose (UA) Urine Ketones Urine Blood Urine Nitrite Urine Bilirubin Urine Urobilinogen Ur Leukocyte Esterase Urine Microscopic RBC Urine Microscopic WBC Ur Squamous Epith Cells Urine Bacteria Hyaline Casts Ur Culture Indicated? Urine Test Negative 01/16/19 01/16/19 01/16/19 18:34 16:32 16:32 WBC 5.6 RBC 4.74 Hgb 13.2 Hct 41.6 MCV 87.8 MCH 27.8 L MCHC 31.7 RDW 13.9 Plt Count 207 MPV 10.8 Immature Gran % 0.4 Seg Neutrophils % 74.5 Lymphocytes % 13.8 Monocytes % 8.7 Eosinophils % 2.1 Basophils % 0.5 Neutrophils # 4.2 Lymphocytes # 0.8 Monocytes # 0.5 Eosinophils # 0.1 Basophils # 0.0 Sodium 135 L Potassium 3.9 Chloride 106 Carbon Dioxide 22 L BUN 11 Creatinine 0.47 L Est GFR ( Amer) > 60 Est GFR (Non-Af Amer) > 60 BUN/Creatinine Ratio 23 Glucose 96 Calculated Osmolality 279 L Calcium 8.0 L Total Bilirubin 0.4 Direct Bilirubin 0.1 Indirect Bilirubin 0.3 AST 21 ALT 13 Alkaline Phosphatase 72 Serum Total Protein 6.7 Albumin 4.2 Globulin 2.5 Albumin/Globulin Ratio 1.7 Lipase 14 TSH 1.145 Urine Color Yellow Urine Clarity Clear Urine pH 6.0 Ur Specific [place]raphill 1.017 Urine Protein Trace Urine Glucose (UA) Normal Urine Ketones 80 H Urine Blood Negative Urine Nitrite Negative Urine Bilirubin Negative Urine Urobilinogen Normal Ur Leukocyte Esterase Small H Urine Microscopic RBC 5-15 H Urine Microscopic WBC 5-15 H Ur Squamous Epith Cells Many H Urine Bacteria Few Hyaline Casts None Seen Ur Culture Indicated? NO. A Urine Test - Impressions ITS Impressions Abdomen/Pelvis CT 01/16/19 17:03 IMPRESSION: 1. A large portion the appendix appears normal, however there is a portion of the appendix either at the base or tip which appears inflammatory with periappendiceal fluid suspicious for focal acute appendicitis. No perforation is evident. 2. Mild intra and extrahepatic bile duct dilatation status post cholecystectomy typical of reservoir effect. D/ / Hernán Lynne / Hernán Lynne Interpreting Provider: Hernán Lynne - Patient Status Disposition: Home, Self-Care Condition: Fair Functional capacity at discharge: independent ambulation Overall status at discharge: patient is progressing back to baseline - Discharge Instructions Instructions: Hydrocodone/Acetaminophen (By mouth), Ibuprofen (By mouth), Laxative, Stool Softeners (By mouth), Ondansetron (By mouth), Ovarian Cyst (GEN), Laparoscopic Appendectomy (DC) Follow Up With: Anupam Reis MD [Primary Care Provider] - Denise Duron CNP [Advanced Practice Nurse] - 02/04/19 11:30 am Additional Instructions: General Surgical Discharge Instructions 1. No pushing, pulling, or lifting greater than 15 lbs for 2 weeks (depending upon procedure). 2. You may shower beginning today, but no tub baths, soaking, or swimming for 2 weeks. 3. You may resume driving when you are off narcotics and are safe to react in a car. 4. Take ibuprofen every 8 hours for discomfort. If this does not relieve discomfort, you may take the as needed Percocet. Take narcotics as directed. Do not take more narcotics then directed and do not share your narcotics with any other person. Do not drink alcohol while on narcotics. 5. Take stool softeners (Colace) or a water based laxative (Miralax) while taking narcotics. You may hold for loose stools. 6. Report any fevers greater than 100.5F, increase abdominal discomfort, drainage that looks like pus, increased redness or pain at the surgical site, or any vomiting. 7. Report any pain in the calves, shortness of breath, or rapid heartbeat. 8. Follow-up in the office as directed. 9. If you were prescribed antibiotics, do not stop them without talking to your provider. Follow-up with your QUICK TECHNICIAN in 2 weeks - Diet and Activity Activity: increase activity as tolerated Diet: advance to your usual diet <Petar Drummond - Last Filed: 01/18/19 10:34> Orders not resulted at time of discharge: Pending orders 01/16/19 22:55 Surgical Pathology [PTH] Routine Date of Encounter: 01/17/19 - Discharge Diagnosis (1) Appendicitis Status: Resolved Qualifiers: Appendicitis type: acute appendicitis Acute appendicitis type: with localized peritonitis Appendicitis gangrene presence: unspecified whether gangrene present Appendicitis perforation presence: without perforation Appendicitis abscess presence: without abscess Qualified Code(s): K35.30 - Acute appendicitis with localized peritonitis, without perforation or gangrene General Surgery Exam Initial Vital Signs Temp Pulse Resp BP Pulse Ox 97.8 F 106 14 113/79 98 01/16/19 16:02 01/16/19 16:02 01/16/19 16:02 01/16/19 16:02 01/16/19 16:02 - Hospital Course Hospital course: Ms. Beckford is a 38 year old female - Time Spent with Patient Total time spent providing and/or coordinating discharge services: Date of admission: 01/16/19 20:44 Primary care physician: Anupam Reis MD Consults: 01/16/19 19:12 Consult to Surgery [CONS] Stat Consulting Provider: Petar Drummond Reason for Consult: appendicitis Time Notified: 19:12 Call Completed: Yes - Impressions ITS Impressions Abdomen/Pelvis CT 01/16/19 17:03 IMPRESSION: 1. A large portion the appendix appears normal, however there is a portion of the appendix either at the base or tip which appears inflammatory with periappendiceal fluid suspicious for focal acute appendicitis. No perforation is evident. 2. Mild intra and extrahepatic bile duct dilatation status post cholecystectomy typical of reservoir effect. D/ / Hernán Lynne / Hernán Lynne Interpreting Provider: Hernán Lynne - Attending Attestation I have personally performed a face to face evaluation on this patient. I have reviewed and agree with the care plan. History and Exam by me shows: The patient is seen and evaluated with the clinical nurse practitioner on morning rounds. She underwent laparoscopic appendectomy and will be ready for discharge after her postoperative antibiotics are completed. Return to clinic one to 2 weeks. Petar Drummond MD FACS
[2019-01-17] MEDS ORDERED: Pantoprazole 40 MG VIAL IVP SCH (09:00)
[2019-01-17 11:23] VITALS: BP 95/58
== END 2019-01-17 12:07 | disposition home or self-care (01) ==
LOC: 3ANU 15:39 → EMEROOARM 15:39 → 3ANU 21:00
PROVIDERS: ADMIT Surgery; ATTEND Surgery

== ENCOUNTER 2020-11-01 11:33 | Inpatient (IN) ==
[2020-11-01] MEDS ORDERED: Morphine Sulfate 2 MG/ML SYRINGE IVP ONE ×3 (12:31→14:59)
[2020-11-01] MEDS ORDERED: Ondansetron 4 MG/2 ML VIAL IVP ONE ×2 (12:45→14:47)
[2020-11-01 12:50] LABS: Basophils # 0.1 K/mcL (0.0-0.2); Basophils % 0.9 %; Eosinophils # 0.1 K/mcL (0.0-0.6); Eosinophils % 1.2 %; Hematocrit 45.5 % (35.3-44.9); Hemoglobin 14.9 g/dL (11.5-15.4); Immature Granulocytes % 0.3 % (0-4); Lymphocytes # 1.7 K/mcL (0.6-4.6); Lymphocytes % 18.4 %; Mean Corpuscular HGB Conc 32.7 g/dL (31.6-35.5); Mean Corpuscular Volume 88.7 fL (83.0-100.0); Mean Platelet Volume 10.4 fL (9.4-12.4); Monocytes # 0.6 K/mcL (0.0-1.3); Monocytes % 6.9 %; Neutrophils # 6.5 K/mcL (1.6-8.9); Platelet Count 224 K/mcL (140-400); Red Blood Count 5.13 M/mcL (3.82-4.97); Red Cell Distribution Width 13.9 % (11.5-14.5); Segmented Neutrophils % 72.3 %
[2020-11-01 13:19] LABS: INR 1.1; Prothrombin Time 12.5 Seconds (9.4-12.1)
[2020-11-01 13:22] LABS: Activated Partial Thrombo Time 31.9 Seconds (26.0-36.0)
[2020-11-01 13:29] LABS: BUN/Creatinine Ratio 20 (6-26); Blood Urea Nitrogen 12 mg/dL (6-20); Calcium 9.8 mg/dL (8.6-10.3); Carbon Dioxide 22 mEq/L (23-29); Chloride 106 mEq/L (98-107); Glucose 91 mg/dL (70-105); Osmolality,Calculated 287 (280-300); Potassium 3.9 mEq/L (3.5-5.1); Sodium 139 mEq/L (136-145); Troponin I < 0.03 ng/mL (< 0.04); eGFR For African Americans > 60 (> 60); eGFR For Non-African Americans > 60 (> 60)
[2020-11-01] MEDS ORDERED: *HR* FentaNYL (PF) 100 MCG/2 ML VIAL IVP ONE (14:45)
[2020-11-01] MEDS ORDERED: Naloxone 0.4 MG/ML INJ IVP PRN (15:08)
[2020-11-01] MEDS ORDERED: Ondansetron 4 MG/2 ML VIAL IVP PRN (15:10)
[2020-11-01] MEDS ORDERED: *HR* HYDROmorphone (PF) 1 MG/ML SYRINGE IVP STA (15:22)
[2020-11-01] MEDS: Ketorolac 15 MG/ML VIAL IVP SCH ×3 (17:10→23:59)
[2020-11-01] MEDS: Pantoprazole 40 MG VIAL IVP SCH (17:37)
[2020-11-01] MEDS: Morphine Sulfate 2 MG/ML SYRINGE IVP PRN ×2 (17:37→21:27)
[2020-11-01] MEDS: *HR* HYDROcodone/Acet 5/325 mg TABLET PO PRN ×2 (19:42→23:21)
[2020-11-02 01:11] LABS: Basophils # 0.1 K/mcL (0.0-0.2); Basophils % 0.6 %; Eosinophils % 0.2 %; Hematocrit 44.1 % (35.3-44.9); Hemoglobin 13.9 g/dL (11.5-15.4); Immature Granulocytes % 0.3 % (0-4); Lymphocytes # 1.6 K/mcL (0.6-4.6); Lymphocytes % 14.8 %; Mean Corpuscular HGB Conc 31.5 g/dL (31.6-35.5); Mean Corpuscular Hemoglobin 28.5 pg (28.0-33.3); Mean Corpuscular Volume 90.4 fL (83.0-100.0); Mean Platelet Volume 10.3 fL (9.4-12.4); Monocytes # 0.6 K/mcL (0.0-1.3); Monocytes % 5.2 %; Neutrophils # 8.5 K/mcL (1.6-8.9); Platelet Count 200 K/mcL (140-400); Red Blood Count 4.88 M/mcL (3.82-4.97); Red Cell Distribution Width 13.8 % (11.5-14.5); Segmented Neutrophils % 78.9 %; White Blood Count 10.8 K/mcL (4.3-11.1)
[2020-11-02] MEDS: Morphine Sulfate 2 MG/ML SYRINGE IVP PRN ×5 (01:27→21:00)
[2020-11-02 01:31] LABS: BUN/Creatinine Ratio 28 (6-26); Blood Urea Nitrogen 15 mg/dL (6-20); Calcium 8.9 mg/dL (8.6-10.3); Carbon Dioxide 27 mEq/L (23-29); Chloride 101 mEq/L (98-107); Glucose 121 mg/dL (70-105); Magnesium 1.7 mg/dL (1.6-2.6); Osmolality,Calculated 282 (280-300); Phosphorous 3.3 mg/dL (2.7-4.5); Sodium 135 mEq/L (136-145); eGFR For African Americans > 60 (> 60); eGFR For Non-African Americans > 60 (> 60)
[2020-11-02] MEDS: Ketorolac 15 MG/ML VIAL IVP SCH ×4 (06:09→16:55)
[2020-11-02] MEDS: Pantoprazole 40 MG VIAL IVP SCH (08:19)
[2020-11-02] MEDS ORDERED: Clindamycin 900 MG/50 ML 900 MG/50 ML IV.SOLN IVPB ONE ×2 (08:23→11:21)
[2020-11-02] MEDS ORDERED: SODIUM CHLORIDE IX ONE (09:00)
[2020-11-02] MEDS ORDERED: CATH TIP IX ONE (09:00)
[2020-11-02] MEDS ORDERED: DOXYCYCLINE IX ONE (09:00)
[2020-11-02] MEDS ORDERED: Thyroid (Amour) 30 MG TABLET PO SCH (09:00)
[2020-11-02] MEDS ORDERED: Lidocaine -MPF 2% 2 ML VIAL ONE (11:03)
[2020-11-02] MEDS ORDERED: *HR* Propofol 200 MG/20 ML VIAL IVP ONE (11:03)
[2020-11-02] MEDS ORDERED: *HR* FentaNYL (PF) 100 MCG/2 ML VIAL ONE ×2 (11:03→11:38)
[2020-11-02] MEDS ORDERED: Lidocaine -MPF 4% 5 ML AMPUL ONE (11:03)
[2020-11-02] MEDS ORDERED: Ondansetron 4 MG/2 ML VIAL ONE (11:03)
[2020-11-02] MEDS ORDERED: *HR* Rocuronium Bromide 50 MG/5 ML VIAL ONE (11:03)
[2020-11-02] MEDS ORDERED: *HR* Midazolam HCl 2 MG/2 ML VIAL ONE (11:03)
[2020-11-02] MEDS ORDERED: *HR* Magnesium Sulfate 1 GM/2 ML VIAL ONE (11:42)
[2020-11-02] MEDS ORDERED: Sugammadex Sodium 200 MG/2 ML VIAL IV ONE (12:33)
[2020-11-02] MEDS ORDERED: *HR* Labetalol 20 MG/4 ML SYRINGE IVP PRN (13:28)
[2020-11-02] MEDS ORDERED: Ondansetron 4 MG/2 ML VIAL IVP PRN (13:28)
[2020-11-02] MEDS: *HR* HYDROmorphone PF 0.5 MG/0.5 ML SYRINGE IVP PRN ×2 (13:40→13:48)
[2020-11-02] MEDS ORDERED: Naloxone 0.4 MG/ML INJ IVP PRN (14:03)
[2020-11-02] MEDS: *HR* Heparin 5,000 UNIT/ML VIAL SQ SCH ×2 (15:23→20:13)
[2020-11-02] MEDS: 0.9 % Sodium Chloride 1,000 ML IVC SCH (15:23)
[2020-11-02] MEDS: Ipratropium/Albuterol Neb 3 ML IH SCH ×3 (15:36→23:23)
[2020-11-02] MEDS: Ondansetron 4 MG/2 ML VIAL IVP PRN ×2 (17:13→23:34)
[2020-11-02] MEDS: *HR* HYDROcodone/Acet 5/325 mg TABLET PO PRN (20:13)
[2020-11-03] MEDS: Ketorolac 15 MG/ML VIAL IVP SCH ×5 (00:07→23:51)
[2020-11-03] MEDS: *HR* HYDROcodone/Acet 5/325 mg TABLET PO PRN ×4 (00:32→15:15)
[2020-11-03 00:37] LABS: Hematocrit 39.9 % (35.3-44.9); Hemoglobin 12.8 g/dL (11.5-15.4); Mean Corpuscular HGB Conc 32.1 g/dL (31.6-35.5); Mean Corpuscular Hemoglobin 29.6 pg (28.0-33.3); Mean Corpuscular Volume 92.1 fL (83.0-100.0); Mean Platelet Volume 10.6 fL (9.4-12.4); Platelet Count 217 K/mcL (140-400); Red Blood Count 4.33 M/mcL (3.82-4.97); Red Cell Distribution Width 13.5 % (11.5-14.5)
[2020-11-03 00:42] LABS: White Blood Count 17.1 K/mcL (4.3-11.1)
[2020-11-03 00:45] LABS: BUN/Creatinine Ratio 38 (6-26); Blood Urea Nitrogen 18 mg/dL (6-20); Calcium 7.6 mg/dL (8.6-10.3); Carbon Dioxide 21 mEq/L (23-29); Chloride 103 mEq/L (98-107); Glucose 227 mg/dL (70-105); Magnesium 1.6 mg/dL (1.6-2.6); Osmolality,Calculated 283 (280-300); Potassium 4.4 mEq/L (3.5-5.1); Sodium 132 mEq/L (136-145); eGFR For African Americans > 60 (> 60); eGFR For Non-African Americans > 60 (> 60)
[2020-11-03] MEDS: Morphine Sulfate 2 MG/ML SYRINGE IVP PRN ×2 (01:14→05:05)
[2020-11-03 01:35] LABS: Hematocrit 36.2 % (35.3-44.9); Hemoglobin 11.5 g/dL (11.5-15.4); Mean Corpuscular HGB Conc 31.8 g/dL (31.6-35.5); Mean Corpuscular Hemoglobin 28.8 pg (28.0-33.3); Mean Corpuscular Volume 90.5 fL (83.0-100.0); Mean Platelet Volume 10.5 fL (9.4-12.4); Platelet Count 205 K/mcL (140-400); Red Cell Distribution Width 13.7 % (11.5-14.5); White Blood Count 15.7 K/mcL (4.3-11.1)
[2020-11-03] MEDS: 0.9 % Sodium Chloride 1,000 ML IVC SCH (03:52)
[2020-11-03] MEDS: Ipratropium/Albuterol Neb 3 ML IH SCH ×2 (04:04→07:59)
[2020-11-03] MEDS: Ondansetron 4 MG/2 ML VIAL IVP PRN (05:20)
[2020-11-03] MEDS: *HR* Heparin 5,000 UNIT/ML VIAL SQ SCH ×3 (06:11→21:17)
[2020-11-03] MEDS: Thyroid (Amour) 30 MG TABLET PO SCH (07:58)
[2020-11-03] MEDS ORDERED: Pantoprazole 40 MG VIAL IVP SCH (09:00)
[2020-11-03] MEDS: Sennosides/Docusate Sodium TABLET PO SCH ×2 (09:58→21:17)
[2020-11-03] MEDS: Famotidine 20 MG TABLET PO SCH ×2 (09:58→21:17)
[2020-11-03] MEDS ORDERED: Loratadine 10 MG TABLET PO PRN (12:10)
[2020-11-03] MEDS ORDERED: polyethylene glycoL 3350 17 GM POWD.PACK PO PRN (12:10)
[2020-11-03] MEDS: Gabapentin 300 MG CAPSULE PO SCH (21:17)
[2020-11-04 02:55] LABS: Hematocrit 28.9 % (35.3-44.9); Mean Corpuscular HGB Conc 32.2 g/dL (31.6-35.5); Mean Corpuscular Hemoglobin 29.4 pg (28.0-33.3); Mean Corpuscular Volume 91.5 fL (83.0-100.0); Mean Platelet Volume 10.2 fL (9.4-12.4); Platelet Count 187 K/mcL (140-400); Red Blood Count 3.16 M/mcL (3.82-4.97); Red Cell Distribution Width 14.1 % (11.5-14.5)
[2020-11-04 02:57] LABS: Hemoglobin 9.3 g/dL (11.5-15.4)
[2020-11-04 03:11] LABS: % Iron Saturation 10 % (15-50); BUN/Creatinine Ratio 19 (6-26); Blood Urea Nitrogen 9 mg/dL (6-20); Carbon Dioxide 24 mEq/L (23-29); Chloride 108 mEq/L (98-107); Glucose 115 mg/dL (70-105); Iron 25 mcg/dL (50-170); Osmolality,Calculated 286 (280-300); Potassium 4.1 mEq/L (3.5-5.1); Sodium 138 mEq/L (136-145); Transferrin 183 mg/dL (203-362); eGFR For African Americans > 60 (> 60); eGFR For Non-African Americans > 60 (> 60)
[2020-11-04 03:12] LABS: Magnesium 2.1 mg/dL (1.6-2.6)
[2020-11-04 03:26] LABS: Thyroid Stimulating Hormone 1.817 mcIU/mL (0.340-5.600)
[2020-11-04] MEDS: *HR* Heparin 5,000 UNIT/ML VIAL SQ SCH ×3 (05:57→21:53)
[2020-11-04] MEDS: Ketorolac 15 MG/ML VIAL IVP SCH ×3 (05:57→17:02)
[2020-11-04] MEDS ORDERED: Iron Sucrose Complex 250 MG in 0.9 % Sodium Chloride 250 ML IVPB ONE (07:35)
[2020-11-04] MEDS: Sennosides/Docusate Sodium TABLET PO SCH ×2 (07:48→21:53)
[2020-11-04] MEDS: Thyroid (Amour) 30 MG TABLET PO SCH (07:48)
[2020-11-04] MEDS: Gabapentin 300 MG CAPSULE PO SCH ×2 (07:49→21:50)
[2020-11-04] MEDS: lamoTRIgine 100 MG TABLET PO SCH (07:49)
[2020-11-04] MEDS: Famotidine 20 MG TABLET PO SCH ×2 (07:49→21:52)
[2020-11-04] MEDS: *HR* HYDROcodone/Acet 5/325 mg TABLET PO PRN ×3 (08:43→22:39)
[2020-11-04] MEDS ORDERED: Cyanocobalamin (B-12) 1,000 MCG TABLET PO SCH (09:00)
[2020-11-04] MEDS ORDERED: Multivit/Ca/Min/Fe/FA 1 TAB TABLET PO SCH (09:00)
[2020-11-04] MEDS ORDERED: Cholecalciferol (D-3) 1,000 UNIT (25MCG) TABLET PO SCH (09:00)
[2020-11-04] MEDS ORDERED: Iron Sucrose Complex 400 MG in 0.9 % Sodium Chloride 250 ML IVPB ONE (09:30)
[2020-11-04] MEDS: Ondansetron 4 MG/2 ML VIAL IVP PRN (11:11)
[2020-11-05] MEDS: Ketorolac 15 MG/ML VIAL IVP SCH ×5 (01:00→23:11)
[2020-11-05] MEDS: *HR* Heparin 5,000 UNIT/ML VIAL SQ SCH (06:11)
[2020-11-05 06:13] LABS: Basophils # 0.1 K/mcL (0.0-0.2); Basophils % 0.7 %; Eosinophils # 0.1 K/mcL (0.0-0.6); Eosinophils % 1.1 %; Hematocrit 25.8 % (35.3-44.9); Hemoglobin 8.4 g/dL (11.5-15.4); Immature Granulocytes % 0.3 % (0-4); Lymphocytes # 1.8 K/mcL (0.6-4.6); Lymphocytes % 25.9 %; Mean Corpuscular HGB Conc 32.6 g/dL (31.6-35.5); Mean Corpuscular Volume 92.1 fL (83.0-100.0); Mean Platelet Volume 10.6 fL (9.4-12.4); Monocytes # 0.6 K/mcL (0.0-1.3); Monocytes % 8.2 %; Neutrophils # 4.4 K/mcL (1.6-8.9); Platelet Count 156 K/mcL (140-400); Red Cell Distribution Width 14.4 % (11.5-14.5); Segmented Neutrophils % 63.8 %
[2020-11-05 06:35] LABS: BUN/Creatinine Ratio 26 (6-26); Blood Urea Nitrogen 11 mg/dL (6-20); Calcium 8.2 mg/dL (8.6-10.3); Carbon Dioxide 25 mEq/L (23-29); Chloride 106 mEq/L (98-107); Glucose 96 mg/dL (70-105); Magnesium 1.6 mg/dL (1.6-2.6); Osmolality,Calculated 283 (280-300); Potassium 3.9 mEq/L (3.5-5.1); Sodium 137 mEq/L (136-145); eGFR For African Americans > 60 (> 60); eGFR For Non-African Americans > 60 (> 60)
[2020-11-05] MEDS: Famotidine 20 MG TABLET PO SCH ×2 (08:14→20:36)
[2020-11-05] MEDS: lamoTRIgine 100 MG TABLET PO SCH (08:14)
[2020-11-05] MEDS: *HR* HYDROcodone/Acet 5/325 mg TABLET PO PRN ×2 (08:14→16:26)
[2020-11-05] MEDS: Thyroid (Amour) 30 MG TABLET PO SCH (08:14)
[2020-11-05] MEDS: Sennosides/Docusate Sodium TABLET PO SCH ×2 (08:14→20:36)
[2020-11-05] MEDS: Gabapentin 300 MG CAPSULE PO SCH ×2 (08:14→20:36)
[2020-11-05] MEDS: Ondansetron 4 MG/2 ML VIAL IVP PRN (08:17)
[2020-11-05] MEDS ORDERED: Iron Sucrose Complex 400 MG in 0.9 % Sodium Chloride 250 ML IVPB ONE (09:30)
[2020-11-05] MEDS: Metoprolol XL (24 HR) Succ 25 MG TAB.ER.24H PO SCH (09:36)
[2020-11-06 01:52] LABS: Basophils # 0.1 K/mcL (0.0-0.2); Basophils % 0.6 %; Eosinophils # 0.1 K/mcL (0.0-0.6); Eosinophils % 1.5 %; Hematocrit 26.8 % (35.3-44.9); Hemoglobin 8.6 g/dL (11.5-15.4); Immature Granulocytes % 0.5 % (0-4); Lymphocytes % 24.5 %; Mean Corpuscular HGB Conc 32.1 g/dL (31.6-35.5); Mean Corpuscular Hemoglobin 29.5 pg (28.0-33.3); Mean Corpuscular Volume 91.8 fL (83.0-100.0); Mean Platelet Volume 10.4 fL (9.4-12.4); Monocytes # 0.6 K/mcL (0.0-1.3); Neutrophils # 5.2 K/mcL (1.6-8.9); Platelet Count 178 K/mcL (140-400); Red Blood Count 2.92 M/mcL (3.82-4.97); Red Cell Distribution Width 14.1 % (11.5-14.5); Segmented Neutrophils % 64.9 %
[2020-11-06 02:17] LABS: BUN/Creatinine Ratio 29 (6-26); Blood Urea Nitrogen 12 mg/dL (6-20); Calcium 8.2 mg/dL (8.6-10.3); Carbon Dioxide 24 mEq/L (23-29); Chloride 105 mEq/L (98-107); Glucose 103 mg/dL (70-105); Magnesium 1.6 mg/dL (1.6-2.6); Osmolality,Calculated 286 (280-300); Potassium 3.8 mEq/L (3.5-5.1); Sodium 138 mEq/L (136-145); eGFR For African Americans > 60 (> 60); eGFR For Non-African Americans > 60 (> 60)
[2020-11-06] MEDS: Ketorolac 15 MG/ML VIAL IVP SCH ×3 (05:29→17:20)
[2020-11-06] MEDS: Ondansetron 4 MG/2 ML VIAL IVP PRN ×2 (05:42→20:50)
[2020-11-06] MEDS: Famotidine 20 MG TABLET PO SCH ×2 (08:12→20:22)
[2020-11-06] MEDS: Sennosides/Docusate Sodium TABLET PO SCH ×2 (08:12→20:23)
[2020-11-06] MEDS: Gabapentin 300 MG CAPSULE PO SCH ×2 (08:12→20:23)
[2020-11-06] MEDS: Thyroid (Amour) 30 MG TABLET PO SCH (08:12)
[2020-11-06] MEDS: lamoTRIgine 100 MG TABLET PO SCH (08:13)
[2020-11-06] MEDS: Metoprolol XL (24 HR) Succ 25 MG TAB.ER.24H PO SCH (08:13)
[2020-11-06] MEDS: *HR* HYDROcodone/Acet 5/325 mg TABLET PO PRN (08:44)
[2020-11-06] MEDS: *HR* OxyCODONE/APAP 5/325 TABLET PO PRN ×2 (13:54→20:41)
[2020-11-07] MEDS: Ketorolac 15 MG/ML VIAL IVP SCH ×2 (00:30→06:28)
[2020-11-07 01:15] LABS: Basophils # 0.1 K/mcL (0.0-0.2); Basophils % 0.7 %; Eosinophils # 0.2 K/mcL (0.0-0.6); Eosinophils % 2.5 %; Hematocrit 27.3 % (35.3-44.9); Hemoglobin 8.7 g/dL (11.5-15.4); Immature Granulocytes % 0.5 % (0-4); Lymphocytes # 1.5 K/mcL (0.6-4.6); Mean Corpuscular HGB Conc 31.9 g/dL (31.6-35.5); Mean Corpuscular Hemoglobin 28.8 pg (28.0-33.3); Mean Corpuscular Volume 90.4 fL (83.0-100.0); Mean Platelet Volume 9.8 fL (9.4-12.4); Monocytes # 0.7 K/mcL (0.0-1.3); Monocytes % 8.7 %; Platelet Count 221 K/mcL (140-400); Red Blood Count 3.02 M/mcL (3.82-4.97); Red Cell Distribution Width 14.4 % (11.5-14.5); Segmented Neutrophils % 67.6 %; White Blood Count 7.5 K/mcL (4.3-11.1)
[2020-11-07 01:34] LABS: BUN/Creatinine Ratio 23 (6-26); Blood Urea Nitrogen 12 mg/dL (6-20); Calcium 8.3 mg/dL (8.6-10.3); Carbon Dioxide 27 mEq/L (23-29); Chloride 105 mEq/L (98-107); Glucose 121 mg/dL (70-105); Osmolality,Calculated 289 (280-300); Potassium 3.7 mEq/L (3.5-5.1); Sodium 139 mEq/L (136-145); eGFR For African Americans > 60 (> 60); eGFR For Non-African Americans > 60 (> 60)
[2020-11-07] MEDS: *HR* OxyCODONE/APAP 5/325 TABLET PO PRN (07:27)
[2020-11-07] MEDS: Ondansetron 4 MG/2 ML VIAL IVP PRN (07:34)
[2020-11-07] MEDS: Famotidine 20 MG TABLET PO SCH (07:39)
[2020-11-07] MEDS: Thyroid (Amour) 30 MG TABLET PO SCH (08:14)
[2020-11-07] MEDS: Metoprolol XL (24 HR) Succ 25 MG TAB.ER.24H PO SCH (08:14)
[2020-11-07] MEDS: Gabapentin 300 MG CAPSULE PO SCH (08:14)
[2020-11-07] MEDS: lamoTRIgine 100 MG TABLET PO SCH (08:14)
[2020-11-07] MEDS: Sennosides/Docusate Sodium TABLET PO SCH (08:14)
[2020-11-07 11:35] VITALS: BP 133/80
== END 2020-11-07 12:34 | disposition home or self-care (01) ==
LOC: EMEROOARM 11:33 → 2NNU 11:33 → SUATTDRO 16:05 → 2NNU 17:15 → SUATTDRO 11-02 10:51
PROVIDERS: ADMIT Internal Medicine; ATTEND Pharmacist